=== PATIENT | male | born 1995 | race Caucasian/White ===

== ENCOUNTER 2019-07-17 14:23 | Emergency (ER) | payer BC ==
[~2019-07-17] VITALS: Ht 172.7 cm; Wt 99.3 kg
[2019-07-17 14:45] VITALS: BP 137/84; Ht 172.7 cm; Wt 99.3 kg
== END 2019-07-17 15:39 | disposition home or self-care (01) ==
LOC: ED 14:23
DX: F41.9 Anxiety disorder, unspecified (principal); R06.02 Shortness of breath; R05 Cough